=== PATIENT | female | born 1985 | race African-American/Black ===

== ENCOUNTER → 2020-01-15 | Outpatient (CLI) | payer OTHER ==
[~2020-01-15] MED LIST: NOHOMEMEDICATIONS; NORCO 5-325 TA1 EACH PO; ZPAK PO
== END ==
LOC: CAT 09:53
DX: Z13.6 Encounter for screening for cardiovascular disorders (principal); I25.10 Atherosclerotic heart disease of native coronary artery without angina pectoris; E78.00 Pure hypercholesterolemia, unspecified